=== PATIENT | male | born 1930 | race Caucasian/White ===

== ENCOUNTER 2017-04-22 13:31 | Emergency (ER) | payer OTHER, MEDICARE ==
[~2017-04-22] VITALS: Ht 182.9 cm; Wt 72.1 kg
[~2017-04-22 13:31] MED LIST: ASPI81TA21 PO
[2017-04-22 13:44] VITALS: Ht 182.9 cm; Wt 72.1 kg
[2017-04-22] MEDS ORDERED: CYAN10005 PO (14:03)
[2017-04-22] MEDS ORDERED: SODIUM CHLORIDE 0.9% 1000ML 500 ML IV STA (14:41)
[2017-04-22] MEDS ORDERED: SODIUM CHLORIDE 0.9% 1000ML 1,000 ML IV STA (14:41)
[2017-04-22] MEDS ORDERED: CEFTRIAXONE SOD INJ 1 GM ADDVIAL IV STA (14:44)
[2017-04-22 15:07] LABS: URINE APPEARANCE CLOUDY (CLEAR); URINE BILIRUBIN NEG (NEG); URINE COLOR YELLOW; URINE NITRITE POS (NEG); URINE PH 7.5 (4.5-7.5); UROBILINOGEN NEG (NEG); ZZUR CULT IF INDIC CLEAN CATCH YES
[2017-04-22 15:09] LABS: BASO % 0.1 %; BASO ABS # 0.01 K/uL (0-0.2); COMPLETE YES; IG% 0.4 %; LYMPH % 12.3 %; LYMPH ABS # 1.44 K/uL (1.2-3.4); MEAN CELL VOLUME 88.3 fL (80-100); MEAN CORPUSCULAR HEMOGLOBIN 30.7 pg (25-34); MEAN CORPUSCULAR HGB CONC 34.8 g/dl (32-36); MEAN PLATELET VOLUME 9.8 fL (7.4-10.4); MONO % 7.9 %; NEUT % 79.3 %; PLATELET COUNT 153 K/uL (130-400); RED BLOOD COUNT 4.53 M/uL (4.7-6.1); WHITE BLOOD COUNT 11.71 K/uL (4.8-10.8)
[2017-04-22 15:10] LABS: MANUAL MICROSCOPIC REQUIRED? NO; REVIEW REQ? NO
[2017-04-22 15:11] LABS: SULFASALICYLIC ACID POS (NEG)
[2017-04-22 15:25] LABS: BUN/CREATININE RATIO 18.6 (10-20); CALCIUM 8.8 mg/dl (8.5-10.1); CREATININE 1.1 mg/dl (0.60-1.40); POTASSIUM 4.1 mmol/L (3.5-5.1)
--- NOTE | 2017-04-22 15:59 | DIAGNOSTIC IMAGING REPORT ---
ABD/PELVIS WITHOUT FOR STONE CT DOSE: 448.94 mGy.cm HISTORY: Flank pain. Hematuria. EVALUATE FLANK PAIN/HEMATURIA TECHNIQUE: Multiaxial CT images of the abdomen and pelvis were performed without the use of intravenous and oral contrast according to the standard department stone protocol. A dose lowering technique was utilized adhering to the principles of ALARA. COMPARISON STUDY: 08/09/2012 FINDINGS: Mild basilar atelectasis. Calcified granuloma posterior gastric angle on the right. Several right renal calcifications similar. Subtle increased in number compared to the prior study. Several left renal calcifications are also slightly increased in number. Atherosclerotic change and ectasia of the abdominal aorta similar compared to the prior study. The bowel pattern is nonobstructive. There is increased fecal load within the a sending and proximal transverse colon. This consistent with a component of fecal stasis. Visualized components of the appendix are unremarkable. Significant wall thickening of the bladder possibly indicative of cystitis. No evidence for free air or pneumatosis. Possible right scrotal hydrocele with a scrota calcification Small fat-containing right inguinal hernia. No evidence of bowel containment.. IMPRESSION: 1. Bilateral nephrocalcinosis slightly increased in number compared to the prior study of 2011. 2. No evidence for an obstructing urinary tract calculus. 3. Normal appendix. 4.. Small fat-containing right inguinal hernia 5. Considerable bladder wall thickening raising the possibility of cystitis. 6. Increased fecal load within the a sending and transverse colon suggesting a component of fecal stasis. 7. Possible small right scrotal hydrocele with a small scrotolith. The above report was generated using voice recognition software. It may contain grammatical, syntax or spelling errors. Electronically signed by: Carlyle Crespo M.D. 04/22/2017 3:57 PM Dictated Date/Time: 04/22/2017 3:48 PM
[2017-04-22] MEDS ORDERED: CEFD300C2 PO (16:54)
--- NOTE | 2017-04-22 17:27 | EMERGENCY ROOM VISIT NOTE ---
History Report prepared by Ulices: Jenna Freeman Under the Supervision of: Dr. Chritsopher Zepeda M.D. First contact with patient: 14:37 Chief Complaint: URINARY SYMPTOMS Stated Complaint: CANNOT MAKE WATER Nursing Triage Summary: triage note: "i woke up around 0430 and tried to go to the bathroom and couldn't." History of Present Illness The patient is an 86 year old male who presents to the Emergency Room with complaints of an episode of urinary symptoms starting this morning. The patient states that when he awoke this morning he felt like he had to use the restroom, but not a lot came out. He notes that he still feels like he has to go. The patient states that he has been drinking enough water and notes that he has been having burning with urination. He currently rates his pain as a 3/10 in severity. The patient denies trouble with his stream the past few days, fever, nausea, vomiting, ever needing to have a catheter for an extended amount of time , chills, and a history of kidney stones. He notes that he had TURP in 1991. Source of History: patient Onset: this morning Position: other (global) Symptom Intensity: 3/10 Quality: burning Timing: other (episode) Associated Symptoms: No fevers, No chills, No nausea, No vomiting Note: The patient denies trouble with his stream the past few days, ever needing to have a catheter for an extended amount of time, and a history of kidney stones. Review of Systems See HPI for pertinent positives & negatives. A total of 10 systems reviewed and were otherwise negative. Past Medical & Surgical Surgical Problems: (1) S/P TURP Family History No pertinent family history Social History Smoking Status: Never Smoker Alcohol Use: none Drug Use: none Marital Status: Housing Status: lives with family Current/Historical Medications Scheduled Aspirin Enteric Coated (Ecotrin Or Generic), 81 MG PO DAILY Cefdinir (Omnicef), 300 MG PO Q12H Cyanocobalamin (Vitamin B-12), 1,000 MCG PO DAILY Allergies Coded Allergies: No Known Allergies (Unverified , 04/22/17) gmg Physical Exam Vital Signs Date Time Temp Pulse Resp B/P (MAP) Pulse Ox O2 Delivery O2 Flow Rate FiO2 04/22/17 13:44 37.5 118 18 147/74 96 Room Air Physical Exam GENERAL: Patient is in no acute distress. HEENT: No acute trauma, normocephalic atraumatic, mucous membranes moist, no nasal congestion, no scleral icterus. NECK: No stridor, no adenopathy, no meningismus, trachea is midline. LUNGS: Clear to auscultation bilaterally, no wheeze, no rhonchi, breath sounds equal. HEART: Tachycardic with regular rhythm. No murmurs. ABDOMEN: Soft, nontender, bowel sounds positive, no hernias, no peritonitis. GROIN: Uncircumcised. No cellulitis. No obvious bladder distention. EXTREMITIES: No cyanosis or edema, full range of motion of all the joints without pain or difficulty, no signs for acute trauma. NEUROLOGIC: Oriented x 3, no acute motor or sensory deficits, no focal weakness. SKIN: No rash, no jaundice, no diaphoresis. Medical Decision & Procedures ER Provider Diagnostic Interpretation: Radiology results as stated below per my review and radiologist interpretation: BLADDER SCAN: Showed 57 cc. No significant retention. ABD/PELVIS WITHOUT FOR STONE CT DOSE: 448.94 mGy.cm HISTORY: Flank pain. Hematuria. EVALUATE FLANK PAIN/HEMATURIA TECHNIQUE: Multiaxial CT images of the abdomen and pelvis were performed without the use of intravenous and oral contrast according to the standard department stone protocol. A dose lowering technique was utilized adhering to the principles of ALARA. COMPARISON STUDY: 08/09/2012 FINDINGS: Mild basilar atelectasis. Calcified granuloma posterior gastric angle on the right. Several right renal calcifications similar. Subtle increased in number compared to the prior study. Several left renal calcifications are also slightly increased in number. Atherosclerotic change and ectasia of the abdominal aorta similar compared to the prior study. The bowel pattern is nonobstructive. There is increased fecal load within the a sending and proximal transverse colon. This consistent with a component of fecal stasis. Visualized components of the appendix are unremarkable. Significant wall thickening of the bladder possibly indicative of cystitis. No evidence for free air or pneumatosis. Possible right scrotal hydrocele with a scrota calcification Small fat-containing right inguinal hernia. No evidence of bowel containment.. IMPRESSION: 1. Bilateral nephrocalcinosis slightly increased in number compared to the prior study of 2011. 2. No evidence for an obstructing urinary tract calculus. 3. Normal appendix. 4.. Small fat-containing right inguinal hernia 5. Considerable bladder wall thickening raising the possibility of cystitis. 6. Increased fecal load within the a sending and transverse colon suggesting a component of fecal stasis. 7. Possible small right scrotal hydrocele with a small scrotolith. The above report was generated using voice recognition software. It may contain grammatical, syntax or spelling errors. Electronically signed by: Carlyle Crespo M.D. 04/22/2017 3:57 PM Dictated Date/Time: 04/22/2017 3:48 PM Laboratory Results 04/22/17 15:00 Red Blood Count 4.53, Mean Corpuscular Volume 88.3, Mean Corpuscular Hemoglobin 30.7, Mean Corpuscular Hemoglobin Concent 34.8, Mean Platelet Volume 9.8, Neutrophils (%) (Auto) 79.3, Lymphocytes (%) (Auto) 12.3, Monocytes (%) (Auto) 7.9, Eosinophils (%) (Auto) 0.0, Basophils (%) (Auto) 0.1, Neutrophils # (Auto) 9.29, Lymphocytes # (Auto) 1.44, Monocytes # (Auto) 0.92, Eosinophils # (Auto) 0.00, Basophils # (Auto) 0.01 04/22/17 15:00 Test 04/22/17 14:40 04/22/17 15:00 Urine Color YELLOW Urine Appearance CLOUDY (CLEAR) Urine pH 7.5 (4.5-7.5) Urine Specific [place] 1.020 (1.000-1.030) Urine Protein 2+ (NEG) Urine Glucose (UA) NEG (NEG) Urine Ketones NEG (NEG) Urine Occult Blood 3+ (NEG) Urine Nitrite POS (NEG) Urine Bilirubin NEG (NEG) Urine Urobilinogen NEG (NEG) Urine Leukocyte Esterase MODERATE (NEG) Urine WBC (Auto) >30 /hpf (0-5) Urine RBC (Auto) >30 /hpf (0-4) Urine Hyaline Casts (Auto) 1-5 /lpf (0-5) Urine Epithelial Cells (Auto) 10-20 /lpf (0-5) Urine Bacteria (Auto) 4+ (NEG) White Blood Count 11.71 K/uL (4.8-10.8) Red Blood Count 4.53 M/uL (4.7-6.1) Hemoglobin 13.9 g/dL (14.0-18.0) Hematocrit 40.0 % (42-52) Mean Corpuscular Volume 88.3 fL (80-100) Mean Corpuscular Hemoglobin 30.7 pg (25-34) Mean Corpuscular Hemoglobin Concent 34.8 g/dl (32-36) Platelet Count 153 K/uL (130-400) Mean Platelet Volume 9.8 fL (7.4-10.4) Neutrophils (%) (Auto) 79.3 % Lymphocytes (%) (Auto) 12.3 % Monocytes (%) (Auto) 7.9 % Eosinophils (%) (Auto) 0.0 % Basophils (%) (Auto) 0.1 % Neutrophils # (Auto) 9.29 K/uL (1.4-6.5) Lymphocytes # (Auto) 1.44 K/uL (1.2-3.4) Monocytes # (Auto) 0.92 K/uL (0.11-0.59) Eosinophils # (Auto) 0.00 K/uL (0-0.5) Basophils # (Auto) 0.01 K/uL (0-0.2) RDW Standard Deviation 45.2 fL (36.4-46.3) RDW Coefficient of Variation 13.9 % (11.5-14.5) Immature Granulocyte % (Auto) 0.4 % Immature Granulocyte # (Auto) 0.05 K/uL (0.00-0.02) Anion Gap 6.0 mmol/L (3-11) Est Creatinine Clear Calc Drug Dose 51.0 ml/min Estimated GFR () 71.1 Estimated GFR (Non- 61.3 BUN/Creatinine Ratio 18.6 (10-20) Calcium Level 8.8 mg/dl (8.5-10.1) Urine dip positive for blood, nitrites, and leukocytes. Consistent with infection. Laboratory results reviewed by me. Medications Administered Medications (Trade) Dose Ordered Sig/Andrew Route Start Time Stop Time Status Last Admin Dose Admin Sodium Chloride 500 ml @ 999 mls/hr Q31M STAT IV 04/22/17 14:41 04/22/17 15:11 DC 04/22/17 14:41 999 MLS/HR Sodium Chloride 1,000 ml @ 200 mls/hr Q5H STAT IV 04/22/17 14:41 04/22/17 19:40 04/22/17 14:41 200 MLS/HR Ceftriaxone Sodium (Rocephin Inj) 1 gm NOW STAT IV 04/22/17 14:44 04/22/17 14:45 DC 04/22/17 14:44 1 GM ED Course 1438: The patient was evaluated in room A12A. A complete history and physical exam was performed. 1441: Ordered NSS 1000 ml @ 200 mls/hr IV, NSS 500 ml @ 999 mls/hr IV. 1444: Ordered Rocephin Inj 1 gm IV. 1637: Reevaluated the patient. Discussed results and discharge instructions: he verbalized understanding and agreement. The patient is ready for discharge. Medical Decision Differential diagnoses include proctitis, UTI, pyelonephritis, renal failure, urinary obstruction, urinary retention, cellulitis. There is a mild leukocytosis which would be consistent with infection. No anemia. No significant electrolyte abnormality or kidney failure. Urinalysis does show infection, urine culture is pending. Abdominal and pelvis CT shows some chronic findings. No ureteral obstruction. Cystitis was suspected. On exam, the patient was not febrile or toxic. He was in no significant distress. The patient received IV saline, he was given IV ceftriaxone. A bladder scan was done, he had minimal urine in the bladder, no need for a Robles catheter. The patient has a urinary infection which has caused his dysuria. He is being discharged on Omnicef twice a day for 10 days, hydration was encouraged. He will see his doctor in follow-up and return here for worsening symptoms, fever or chills. Medication Reconcilliation Current Medication List: was personally reviewed by me Blood Pressure Screening Patient's blood pressure: Elevated blood pressure Blood pressure disposition: Elevated BP felt to be situational Impression Primary Impression: UTI (urinary tract infection) Scribe Attestation The scribe's documentation has been prepared under my direction and personally reviewed by me in its entirety. I confirm that the note above accurately reflects all work, treatment, procedures, and medical decision making performed by me. Departure Information Dispostion Home / Self-Care Prescriptions Cefdinir (OMNICEF) 300 Mg Cap 300 MG PO Q12H for 10 Days, #20 CAP Prov: Christopher Zepeda M.D. 9/10/17 Referrals Marcellus Carrillo M.D. (PCP) Forms HOME CARE DOCUMENTATION FORM, IMPORTANT VISIT INFORMATION Patient Instructions My [facility] [employer] Additional Instructions fluids omnicef 2x per day for 10 days see [facility] palma this week return for worsening symptoms, fever, vomiting or worsening pain
[2017-04-22 18:06] VITALS: BP 155/85; PULSE 95; TEMP 37.5; O2SAT 99
== END 2017-04-22 17:00 | disposition home or self-care (01) ==
LOC: C.EDB 13:32 → C.EDA 17:00
DX: N39.0 Urinary tract infection, site not specified (principal); Z79.82 Long term (current) use of aspirin

== ENCOUNTER 2017-05-09 01:49 | Emergency (ER) | payer OTHER, MEDICARE ==
[~2017-05-09] VITALS: Ht 182.9 cm; Wt 71.3 kg
[~2017-05-09 01:49] MED LIST changes: +CYAN10005 PO
[2017-05-09 01:56] VITALS: TEMP 36.9; Ht 182.9 cm; Wt 71.3 kg
[2017-05-09 02:35] LABS: URINE APPEARANCE TURBID (CLEAR); URINE BILIRUBIN NEG (NEG); URINE COLOR ORANGE; URINE EPITHELIAL CELL AUTO >30 /lpf (0-5); URINE NITRITE NEG (NEG); URINE PH 6.5 (4.5-7.5); URINE SPECIFIC GRAVITY 1.014 (1.000-1.030); UROBILINOGEN NEG (NEG); ZZUR CULT IF INDIC CLEAN CATCH YES
[2017-05-09 02:36] LABS: MANUAL MICROSCOPIC REQUIRED? NO; REVIEW REQ? YES
[2017-05-09 02:47] LABS: BASO % 0.2 %; BASO ABS # 0.02 K/uL (0-0.2); COMPLETE YES; EOS % 1.9 %; IG% 0.3 %; LYMPH % 26.7 %; LYMPH ABS # 2.51 K/uL (1.2-3.4); MEAN CELL VOLUME 88.6 fL (80-100); MEAN CORPUSCULAR HEMOGLOBIN 29.8 pg (25-34); MEAN CORPUSCULAR HGB CONC 33.6 g/dl (32-36); MEAN PLATELET VOLUME 10.1 fL (7.4-10.4); MONO % 10.6 %; NEUT % 60.3 %; PLATELET COUNT 172 K/uL (130-400); WHITE BLOOD COUNT 9.39 K/uL (4.8-10.8)
[2017-05-09 03:06] LABS: BUN/CREATININE RATIO 14.1 (10-20); CALCIUM 8.7 mg/dl (8.5-10.1); CREATININE 1.1 mg/dl (0.60-1.40); POTASSIUM 3.8 mmol/L (3.5-5.1)
[2017-05-09] MEDS ORDERED: CIPROFLOXACIN 250 MG TAB PO ONE (03:45)
[2017-05-09] MEDS ORDERED: CIPR1TAB11 PO (04:37)
--- NOTE | 2017-05-09 04:44 | EMERGENCY ROOM VISIT NOTE ---
History Report prepared by Ulices: Trever Ambriz Under the Supervision of: Dr. Antonieta Hoffman M.D. First contact with patient: 02:01 Chief Complaint: URINARY SYMPTOMS Stated Complaint: URINARY PROBLEMS History of Present Illness The patient is a 86 year old male who presents to the Emergency Room with complaints of persistent urinary symptoms beginning yesterday. His symptoms include increased urinary frequency, hematuria, and inability to fully empty bladder. He was seen in the ED a few weeks ago with similar symptoms and was discharged on antibiotics. The patient has a previous history of a TURP several years ago. He denies any fevers, abdominal pain, testicular pain, back pain, vomiting, or diarrhea. Source of History: patient Onset: Yesterday Quality: other (urinary symptoms) Timing: other (persistent) Associated Symptoms: No fevers, No vomiting, No abdominal pain, No back pain , No diarrhea Note: The patient denies any testicular pain. Review of Systems See HPI for pertinent positives & negatives. A total of 10 systems reviewed and were otherwise negative. Past Medical & Surgical Surgical Problems: (1) S/P TURP Family History No pertinent family history Social History Smoking Status: Never Smoker Alcohol Use: none Drug Use: none Marital Status: Housing Status: lives with family Current/Historical Medications Scheduled Aspirin Enteric Coated (Ecotrin Or Generic), 81 MG PO DAILY Ciprofloxacin Tab (Cipro), 250 MG PO BID Cyanocobalamin (Vitamin B-12), 1,000 MCG PO DAILY Allergies Coded Allergies: No Known Allergies (Unverified , 05/09/17) gmg Physical Exam Vital Signs Date Time Temp Pulse Resp B/P (MAP) Pulse Ox O2 Delivery O2 Flow Rate FiO2 05/09/17 04:54 88 16 146/96 96 05/09/17 02:58 86 18 137/73 97 Room Air 05/09/17 01:56 36.9 102 20 138/83 94 Room Air Physical Exam Vital signs reviewed. General: Well-appearing male, in no significant distress. HEENT: No scleral icterus, PERRLA, neck supple. Atraumatic. Cardiovascular: Regular rate and rhythm, no extra sounds. Pulmonary: Clear to auscultation bilaterally, normal work of breathing. Abdomen: Soft, nontender, nondistended, positive bowel sounds. Musculoskeletal: Atraumatic, no peripheral edema. Neurologic: Patient awake alert and oriented x 3 Skin: Warm, dry, no rash Medical Decision & Procedures ER Provider Diagnostic Interpretation: US results per statrad and my review. US RENAL: Nonobstructing calculus within the lower pole of the right kidney measuring 3 mm. Otherwise, kidneys are unremarkable. No hydronephrosis. Bilateral ureteral jets are visualized. Urinary bladder is unremarkable. Spleen is mildly enlarged measuring 13.5 cm. Laboratory Results 05/09/17 02:30 Red Blood Count 4.40, Mean Corpuscular Volume 88.6, Mean Corpuscular Hemoglobin 29.8, Mean Corpuscular Hemoglobin Concent 33.6, Mean Platelet Volume 10.1, Neutrophils (%) (Auto) 60.3, Lymphocytes (%) (Auto) 26.7, Monocytes (%) (Auto) 10.6, Eosinophils (%) (Auto) 1.9, Basophils (%) (Auto) 0.2, Neutrophils # (Auto ) 5.65, Lymphocytes # (Auto) 2.51, Monocytes # (Auto) 1.00, Eosinophils # (Auto ) 0.18, Basophils # (Auto) 0.02 05/09/17 02:30 Test 05/09/17 02:00 05/09/17 02:30 Urine Color ORANGE Urine Appearance TURBID (CLEAR) Urine pH 6.5 (4.5-7.5) Urine Specific [place] 1.014 (1.000-1.030) Urine Protein 3+ (NEG) Urine Glucose (UA) NEG (NEG) Urine Ketones NEG (NEG) Urine Occult Blood 3+ (NEG) Urine Nitrite NEG (NEG) Urine Bilirubin NEG (NEG) Urine Urobilinogen NEG (NEG) Urine Leukocyte Esterase LARGE (NEG) Urine WBC (Auto) >30 /hpf (0-5) Urine RBC (Auto) >30 /hpf (0-4) Urine Hyaline Casts (Auto) 1-5 /lpf (0-5) Urine Epithelial Cells (Auto) >30 /lpf (0-5) Urine Bacteria (Auto) 2+ (NEG) Urine Pathogenic Casts /lpf (0) White Blood Count 9.39 K/uL (4.8-10.8) Red Blood Count 4.40 M/uL (4.7-6.1) Hemoglobin 13.1 g/dL (14.0-18.0) Hematocrit 39.0 % (42-52) Mean Corpuscular Volume 88.6 fL (80-100) Mean Corpuscular Hemoglobin 29.8 pg (25-34) Mean Corpuscular Hemoglobin Concent 33.6 g/dl (32-36) Platelet Count 172 K/uL (130-400) Mean Platelet Volume 10.1 fL (7.4-10.4) Neutrophils (%) (Auto) 60.3 % Lymphocytes (%) (Auto) 26.7 % Monocytes (%) (Auto) 10.6 % Eosinophils (%) (Auto) 1.9 % Basophils (%) (Auto) 0.2 % Neutrophils # (Auto) 5.65 K/uL (1.4-6.5) Lymphocytes # (Auto) 2.51 K/uL (1.2-3.4) Monocytes # (Auto) 1.00 K/uL (0.11-0.59) Eosinophils # (Auto) 0.18 K/uL (0-0.5) Basophils # (Auto) 0.02 K/uL (0-0.2) RDW Standard Deviation 45.0 fL (36.4-46.3) RDW Coefficient of Variation 13.8 % (11.5-14.5) Immature Granulocyte % (Auto) 0.3 % Immature Granulocyte # (Auto) 0.03 K/uL (0.00-0.02) Anion Gap 8.0 mmol/L (3-11) Est Creatinine Clear Calc Drug Dose 50.4 ml/min Estimated GFR () 71.1 Estimated GFR (Non- 61.3 BUN/Creatinine Ratio 14.1 (10-20) Calcium Level 8.7 mg/dl (8.5-10.1) Laboratory results per my review. Medications Administered Medications (Trade) Dose Ordered Sig/Andrew Route Start Time Stop Time Status Last Admin Dose Admin Ciprofloxacin (Ciprofloxacin Tab) 250 mg NOW ONCE PO 05/09/17 03:45 05/09/17 03:46 DC 05/09/17 03:45 250 MG ED Course 0206: Past medical records reviewed. The patient was evaluated in room B2. A complete history and physical examination was performed. 0345: Ordered Ciprofloxacin Tab 250 mg PO. 0435: Upon reevaluation, the patient appeared to have improvement of his symptoms. I discussed findings with him. He verbalized agreement of the treatment plan. The patient was discharged home. Medical Decision Differential diagnosis: Etiologies such as renal colic, appendicitis, diverticulitis, mesenteric ischemia, aortic pathology, infections, inflammatory bowel disease, PUD, biliary pathology, UTI, as well as others were entertained. This patient was evaluated and appeared to be in no significant distress. Physical examination is fairly unrevealing. Urinalysis is consistent with infection. Laboratory work otherwise is significant for a mild anemia and normal renal function. Ultrasound of the retroperitoneum was performed and is negative for obstructive changes of the kidneys. There are bilateral ureteral jets. There is an intrarenal stone on the right. Patient was given Cipro 250 mg by mouth. He will be placed on a seven-day course, 250 mg twice a day given his renal function. He was referred to urology in follow-up due to recurrent UTI. Patient will return to the ER for worsening of symptoms or any medical concerns. Impression Primary Impression: Urinary tract infection Scribe Attestation The scribe's documentation has been prepared under my direction and personally reviewed by me in its entirety. I confirm that the note above accurately reflects all work, treatment, procedures, and medical decision making performed by me. Departure Information Dispostion Home / Self-Care Prescriptions Ciprofloxacin Tab (Cipro) 250 Mg Tab 250 MG PO BID for 7 Days, #14 TAB Prov: Antonieta Hoffman M.D. 05/09/17 Referrals Marcellus Carrillo M.D. (PCP) Forms HOME CARE DOCUMENTATION FORM, IMPORTANT VISIT INFORMATION Patient Instructions My [facility] Additional Instructions Diagnosis: UTI Cipro 250 mg twice daily for 7 days. Tylenol 650 mg every 6 hours as needed for pain, fever. Drink plenty of fluids. Follow up with your doctor this week for reevaluation. Return to the ED for worsening of symptoms or any medical concerns.
[2017-05-09 04:54] VITALS: BP 146/96; PULSE 88; O2SAT 96
--- NOTE | 2017-05-09 06:52 | DIAGNOSTIC IMAGING REPORT ---
(RENAL)RETROPERITON COMP HISTORY: 86 years-old Male recurrent UTI, blood urine recurrent urinary tract infections. Acute hematuria. History of kidney stones. COMPARISON: CT abdomen and pelvis 04/22/2017. TECHNIQUE: Multiple real-time sonography images of the kidneys and urinary bladder were obtained assessing grayscale appearance and color flow. FINDINGS: Right kidney measures 9.6 x 3.9 x 4.0 cm. Calculus in the lower pole right kidney is seen, 3 mm. No hydronephrosis. Right kidney is otherwise unremarkable. Bilateral ureteral jets are seen in the urinary bladder. Coarse prostatic calcifications are noted in addition to a large phlebolith adjacent to the left urinary bladder which was also seen on comparison CT. Diffuse wall thickening of the urinary bladder is seen. Spleen is mildly enlarged, 13.5 cm. Left kidney measures 10.7 x 5.1 x 3.9 cm. The previously noted nonobstructing calculi the left kidney are not well seen on ultrasound. No left-sided hydronephrosis. IMPRESSION: 1. Right-sided nephrolithiasis without hydronephrosis. Previously noted left-sided renal calculi are not well seen. 2. Wall thickening of the urinary bladder again noted. Correlate with urinalysis. 3. Mild splenomegaly. The above report was generated using voice recognition software. It may contain grammatical, syntax or spelling errors. Electronically signed by: Winston Rose M.D. 05/09/2017 6:51 AM Dictated Date/Time: 05/09/2017 6:47 AM
== END 2017-05-09 04:54 | disposition home or self-care (01) ==
LOC: C.EDB 01:50
DX: N39.0 Urinary tract infection, site not specified (principal); Z98.890 Other specified postprocedural states; Z79.82 Long term (current) use of aspirin; Z79.899 Other long term (current) drug therapy

== ENCOUNTER → 2017-05-10 | Outpatient (CLI) | payer OTHER, MEDICARE ==
[~2017-05-10] MED LIST changes: +CIPR1TAB11 PO
== END | disposition home or self-care (01) ==
LOC: C.LABSPEC 17:01 → C.PATHSPEC 17:05
PROVIDERS: ATTEND Nurse Practitioner Adult Health
DX: R31.0 Gross hematuria (principal)